=== PATIENT | female | born 1960 | race Caucasian/White ===

== ENCOUNTER 2017-11-16 17:38 | Emergency (ER) | payer OTHER ==
[2017-11-16] MEDS ORDERED: DIAZEPAM 5 MG TABLET ONE (18:22)
[2017-11-16] MEDS ORDERED: MORPHINE 4 MG/ML SYR ONE (18:23)
--- NOTE | 2017-11-16 18:35 | RAD REPORT ---
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 A lipohemarthrosis is present indicative of a fracture. Cortical irregularity involves patella which is suspicious for a fracture. No dislocation is seen
--- NOTE | 2017-11-16 19:07 | ER ---
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 No LOC. Care prior to arrival: None. Mechanism of Injury: Fall from standing position. Trauma event details: Injury occurred in the [facility], Injury occurred: at home. Injury occurred: November 16, 2017 Injury occurred at: 14:53. 17:42 Acuity: KIKE 4 17:42 Method Of Arrival: Wheelchair 17:45 Transition of care: patient was not received from another setting of care. Onset of aj symptoms was November 16, 2017. Initial Sepsis Screen: Does the patient meet any 2 criteria? No. Patient's initial sepsis screen is negative. Does the patient have a suspected source of infection? No. Patient's initial sepsis screen is negative. Trauma Activation: Not Applicable Physician: ED Physician; Name: ; Notified At: ; Arrived At: Physician: General Surgeon; Name: ; Notified At: ; Arrived At: Physician: Radiology; Name: ; Notified At: ; Arrived At: Physician: Respiratory; Name: ; Notified At: ; Arrived At: Physician: Lab; Name: ; Notified At: ; Arrived At: Historical: - Allergies: 17:46 SHELLFISH; aj - Home Meds: 17:46 Ibuprofen Oral [Active]; aj - PMHx: 17:46 "Giant cell tumor"; aj - PSHx: 17:46 Tumor removal from left femur; aj - Immunization history: Last tetanus immunization: - up to date. - Social history:: Smoking status: Patient/guardian denies using tobacco. Screenin:55 Abuse screen: Denies threats or abuse. Nutritional screening: No deficits noted. em Tuberculosis screening: No symptoms or risk factors identified. Fall Risk None identified. Primary Survey: 17:42 A: Airway: patent. Breathing/Chest: Respiratory pattern: regular, Respiratory effort: aj spontaneous, unlabored. Circulation: Skin color: pink, Skin temperature: warm, dry. Disability Alert. Assessment: 17:42 General: Appears in no apparent distress. comfortable, Behavior is calm, cooperative, aj appropriate for age. Pain: Complains of pain in left wrist and left knee Pain currently is 9 out of 10 on a pain scale. Neuro: Level of Consciousness is awake, alert, obeys commands, Oriented to person, place, time, situation. Respiratory: Airway is patent Respiratory effort is even, unlabored, Respiratory pattern is regular, symmetrical. Derm: Skin is intact, is healthy with good turgor, Skin is pink, warm \\T\\ dry. normal. Musculoskeletal: Reports pain in left wrist and left knee. 19:12 Reassessment: Patient appears in no apparent distress at this time. iw 19:48 Reassessment: Patient appears in no apparent distress at this time. Patient and/or jd3 family updated on plan of care and expected duration. Pain level reassessed. Patient is alert, oriented x 3, equal unlabored respirations, skin warm/dry/pink. pt reported understanding of discharge instructions, assisted pt to front of ER with wheelchair. Vital Signs: 17:42 BP 134 / 85; Pulse 92; Resp 20; Temp 98.8; Pulse Ox 98% on R/A; Weight 74.84 kg; Height aj 5 ft. 3 in. (160.02 cm); Pain 9/10; 19:39 BP 122 / 68; Pulse 62; Resp 17 S; Pulse Ox 96% on R/A; jd3 17:42 Body Mass Index 29.23 (74.84 kg, 160.02 cm) aj Tricia Coma Score: 17:42 Eye Response: spontaneous(4). Verbal Response: oriented(5). Motor Response: obeys commands(6). Total: 15. Trauma Score (Adult): 17:42 Eye Response: spontaneous(1); Verbal Response: oriented(1); Motor Response: obeys commands(2); Systolic BP: > 89 mm Hg(4); Respiratory Rate: 10 to 29 per min(4); Tricia Score: 15; Trauma Score: 12 ED Course: 17:40 Patient arrived in ED. mr 17:40 out of town, doctor is Private Physician. mr 17:43 Triage completed. aj 17:46 Arm band placed on right wrist. Patient placed in an exam room. aj 17:49 [facility]uch[facility] snw 17:49 Floyd Flowers MD is Attending Physician. snw 17:57 Arnulfo Siu LVN is Primary Nurse. em 18:18 X-ray completed. Portable x-ray completed in exam room. Patient tolerated procedure bb2 well. 18:19 Knee Left 3 View XRAY In Process Unspecified. EDMS 18:19 Wrist Left (3 View) XRAY In Process Unspecified. EDMS 19:22 Patient has correct armband on for positive identification. Bed in low position. Call em light in reach. Adult w/ patient. 19:22 No provider procedures requiring assistance completed. Patient did not have IV access em during this emergency room visit. 19:36 Orthoglass splint: Thumb spica splint applied on left forearm. Knee immobilizer applied cb2 on left knee. Sling applied to left arm. 19:45 Primary Nurse role handed off by Arnulfo Siu LVN rg2 19:48 Mukesh Scott RN is Primary Nurse. jd3 Administered Medications: 18:42 Not Given (Physician Discretion): Valium 2 mg PO once em 18:43 Drug: Valium 2.5 mg Route: PO; em 18:58 Follow up: Response: No adverse reaction em 19:06 Drug: morphine 8 mg Route: IM; Site: right deltoid; jd3 19:50 Follow up: Response: No adverse reaction; Pain is decreased jd3 Outcome: 19:06 Discharge ordered by . snw 19:48 Discharged to home via wheelchair, with family. jd3 19:48 Condition: stable 19:48 Discharge instructions given to patient, Instructed on discharge instructions, follow up and referral plans. medication usage, Demonstrated understanding of instructions, follow-up care, medications, Prescriptions given X 1. 19:51 Patient left the ED. jd3 Signatures: Dispatcher [employer] Linwood Montes rg2 Oly Duong RN RN aj Therrien, Shelly, FNP-C CHAIRMAN-Csnw WatersChantal mr Arnulfo Siu LVN LVN em Venus Greenwood RN RN [facility] Mukesh Scott RN RN jd3 Nadege Landry bb2 Corrections: (The following items were deleted from the chart) 17:44 17:42 Immunization history Last tetanus immunization: - up to date. talat gilliland
--- NOTE | 2017-11-16 19:07 | EDPHYS ---
Physician Documentation [facility] Name: Gifty Myers Age: 57 yrs Sex: Female : 1960 Arrival Date: 11/16/2017 Time: 17:40 Bed 19 Private MD: out of town, doctor ED Physician Floyd Flowers HPI: 11/16 18:04 This 57 yrs old Female presents to ER via Wheelchair with complaints of Fall snw Injury. 18:04 Details of fall: The patient fell from an upright position, while walking. Onset: The snw symptoms/episode began/occurred suddenly, just prior to arrival. Associated injuries: The patient sustained left knee, left wrist, abrasion, contusion, decreased range of motion, painful injury, swelling. Severity of symptoms: At their worst the symptoms were moderate. It is unknown whether or not the patient has had similar symptoms in the past. from [place]. Had removal of Giant Cell tumor in Jun at left knee, multiple hardware pieces remain. right hand dominant. Historical: - Allergies: 17:46 SHELLFISH; aj - Home Meds: 17:46 Ibuprofen Oral [Active]; aj - PMHx: 17:46 "Giant cell tumor"; aj - PSHx: 17:46 Tumor removal from left femur; aj - Immunization history: Last tetanus immunization: - up to date. - Social history:: Smoking status: Patient/guardian denies using tobacco. ROS: 18:02 Eyes: Negative for injury, pain, redness, and discharge, ENT: Negative for injury, snw pain, and discharge, Neck: Negative for injury, pain, and swelling, Cardiovascular: Negative for chest pain, palpitations, and edema, Respiratory: Negative for shortness of breath, cough, wheezing, and pleuritic chest pain, Abdomen/GI: Negative for abdominal pain, nausea, vomiting, diarrhea, and constipation, Back: Negative for injury and pain, : Negative for injury, bleeding, discharge, and swelling, Neuro: Negative for headache, weakness, numbness, tingling, and seizure. 18:02 Constitutional: Positive for body aches, malaise. 18:02 MS/extremity: Positive for injury or acute deformity, swelling, tenderness, of the left knee and left wrist. Exam: 18:02 Constitutional: This is a well developed, well nourished patient who is awake, alert, snw and in mild cute distress. Head/Face: Normocephalic, atraumatic. Eyes: Pupils equal round and reactive to light, extra-ocular motions intact. Lids and lashes normal. Conjunctiva and sclera are non-icteric and not injected. Cornea within normal limits. Periorbital areas with no swelling, redness, or edema. ENT: Nares patent. No nasal discharge, no septal abnormalities noted. Tympanic membranes are normal and external auditory canals are clear. Oropharynx with no redness, swelling, or masses, exudates, or evidence of obstruction, uvula midline. Mucous membranes moist. Neck: Trachea midline, no thyromegaly or masses palpated, and no cervical lymphadenopathy. Supple, full range of motion without nuchal rigidity, or vertebral point tenderness. No Meningismus. Chest/axilla: Normal chest wall appearance and motion. Nontender with no deformity. No lesions are appreciated. Cardiovascular: Regular rate and rhythm with a normal S1 and S2. No gallops, murmurs, or rubs. Normal PMI, no JVD. No pulse deficits. Respiratory: Lungs have equal breath sounds bilaterally, clear to auscultation and percussion. No rales, rhonchi or wheezes noted. No increased work of breathing, no retractions or nasal flaring. Abdomen/GI: Soft, non-tender, with normal bowel sounds. No distension or tympany. No guarding or rebound. No evidence of tenderness throughout. Back: No spinal tenderness. No costovertebral tenderness. Full range of motion. Neuro: Awake and alert, GCS 15, oriented to person, place, time, and situation. Cranial nerves II-XII grossly intact. Motor strength 5/5 in all extremities. Sensory grossly intact. Cerebellar exam normal. Normal gait. Psych: Awake, alert, with orientation to person, place and time. Behavior, mood, and affect are within normal limits. 18:02 Skin: injury, abrasion(s), small abrasion noted, of the left ankle, left knee, contusion(s), that are deep, of the left wrist - probable fx of metacarpals, edema, tenderness, mild deformity. Vital Signs: 17:42 BP 134 / 85; Pulse 92; Resp 20; Temp 98.8; Pulse Ox 98% on R/A; Weight 74.84 kg; Height aj 5 ft. 3 in. (160.02 cm); Pain 9/10; 19:39 BP 122 / 68; Pulse 62; Resp 17 S; Pulse Ox 96% on R/A; jd3 17:42 Body Mass Index 29.23 (74.84 kg, 160.02 cm) aj Tricia Coma Score: 17:42 Eye Response: spontaneous(4). Verbal Response: oriented(5). Motor Response: obeys aj commands(6). Total: 15. Trauma Score (Adult): 17:42 Eye Response: spontaneous(1); Verbal Response: oriented(1); Motor Response: obeys aj commands(2); Systolic BP: > 89 mm Hg(4); Respiratory Rate: 10 to 29 per min(4); Calion Score: 15; Trauma Score: 12 MDM: 17:50 Patient medically screened. snw 19:29 Data reviewed: vital signs, nurses notes. Data interpreted: Pulse oximetry: on room air snw is 98 %. Interpretation: normal. Counseling: I had a detailed discussion with the patient and/or guardian regarding: the historical points, exam findings, and any diagnostic results supporting the discharge/admit diagnosis, the presence of at least one elevated blood pressure reading (>120/80) during this emergency department visit, radiology results, the need for outpatient follow up, to return to the emergency department if symptoms worsen or persist or if there are any questions or concerns that arise at home. Special discussion: Based on the history and exam findings, there is no indication for further emergent testing or inpatient evaluation. I discussed with the patient/guardian the need to see the orthopedic surgeon for further evaluation of the symptoms. I discussed with the patient/guardian the need to see the primary care provider for further evaluation of the symptoms. 11/16 18:00 Order name: Knee Left 3 View XRAY; Complete Time: 18:44 snw 11/16 18:00 Order name: Wrist Left (3 View) XRAY; Complete Time: 19:27 snw 11/16 18:00 Order name: Ice pack: x 2; Complete Time: 18:42 snw 11/16 18:00 Order name: Knee Immobilizer; Complete Time: 18:42 snw 11/16 18:00 Order name: Sugar Tong Forearm Splint; Complete Time: 18:42 snw 11/16 18:00 Order name: Sling; Complete Time: 19:36 snw Administered Medications: 18:42 Not Given (Physician Discretion): Valium 2 mg PO once em 18:43 Drug: Valium 2.5 mg Route: PO; em 18:58 Follow up: Response: No adverse reaction em 19:06 Drug: morphine 8 mg Route: IM; Site: right deltoid; jd3 19:50 Follow up: Response: No adverse reaction; Pain is decreased jd3 Disposition: 11/16/17 19:06 Discharged to Home. Impression: Fall on same level from slipping, tripping and stumbling, Nondisplaced longitudinal fracture of left patella, NONDISPLACED FRACTURE OF DISTAL RADIUS. - Condition is Stable. - Discharge Instructions: Cast or Splint Care, Fall Prevention and Home Safety, Knee Immobilizer, Patellar Fracture, Adult, Radial Fracture. - Prescriptions for Tylenol- Codeine #3 300-30 mg Oral Tablet - take 2 tablet by ORAL route every 6 hours As needed; 30 tablet. - Medication Reconciliation Form, Thank You Letter, Antibiotic Education, Prescription Opioid Use form. - Follow up: Private Physician; When: 2 - 3 days; Reason: Recheck today's complaints, Continuance of care, Re-evaluation by your physician. Follow up: Emergency Department; When: As needed; Reason: Worsening of condition. Addendum: 11/18/2017 07:04 Co-signature as Attending Physician, Floyd Flowers MD I agree with the assessment and w a plan of care. Signatures: Dispatcher [employer] Oly Kwan RN Denisse Barroso, DIESEL PLANT OPERATOR-C DIESEL PLANT OPERATOR-Csnw Arnulfo Siu, INVESTMENT PROFESSIONAL INVESTMENT PROFESSIONAL Floyd Flowers MD MD wa Davies, Jonathon RN RN jd3 Corrections: (The following items were deleted from the chart) 11/16 17:44 17:42 Immunization history Last tetanus immunization: - up to date. talat gilliland 19:51 19:06 11/16/2017 19:06 Discharged to Home. Impression: Fall on same level from jd3 slipping, tripping and stumbling; Nondisplaced longitudinal fracture of left patella; NONDISPLACED FRACTURE OF DISTAL RADIUS. Condition is Stable. Forms are Medication Reconciliation Form, Thank You Letter, Antibiotic Education, Prescription Opioid Use. Follow up: Private Physician; When: 2 - 3 days; Reason: Recheck today's complaints, Continuance of care, Re-evaluation by your physician. Follow up: Emergency Department; When: As needed; Reason: Worsening of condition. snw
--- NOTE | 2017-11-16 19:23 | RAD REPORT ---
EXAM DESCRIPTION: RAD - Wrist Left 3 View - 11/16/2017 6:20 pm CLINICAL HISTORY: Left wrist pain status post injury FINDINGS: No fracture or dislocation is seen. If the patient continues to have symptoms to suggest an occult fracture then a followup plain film se cee in 7 days would be recommended
== END 2017-11-16 19:51 | disposition home or self-care (01) ==
LOC: ER 17:38
DX: S82.025A Nondisplaced longitudinal fracture of left patella, initial encounter for closed fracture (principal); S52.502A Unspecified fracture of the lower end of left radius, initial encounter for closed fracture; W18.30XA Fall on same level, unspecified, initial encounter; Y93.9 Activity, unspecified; Y92.9 Unspecified place or not applicable
CPT/HCPCS: 96372; 99284